=== PATIENT | male | born 1995 | race Caucasian/White ===

== ENCOUNTER 2017-05-19 09:47 | Emergency (ER) | payer MEDICAID, OTHER ==
[~2017-05-19] VITALS: Ht 180.3 cm; Wt 77.4 kg
[2017-05-19] MEDS ORDERED: LIDOCAINE 1% HCL (LOCAL ANESTH.) INJ 20ML MDV ONE (10:13)
[2017-05-19] MEDS ORDERED: cefTRIAXone SOD 1,000 MG VL ONE (10:13)
[2017-05-19] MEDS ORDERED: cefTRIAXone W LIDOCAINE 1 GM IM IM ONE (10:15)
[2017-05-19 10:16] VITALS: BP 133/77
== END 2017-05-19 11:47 | disposition home or self-care (01) ==
LOC: ER 09:47
DX: K02.9 Dental caries, unspecified (principal)
CPT/HCPCS: 96372; 99283; J0696; J2001

== ENCOUNTER 2020-05-30 05:03 | Emergency (ER) | payer MEDICAID ==
[~2020-05-30] VITALS: Ht 185.4 cm; Wt 83.9 kg
[2020-05-30 05:12] VITALS: BP 128/79
[2020-05-30 05:57] LABS: Urine WBC None Seen /hpf (0 - 3)
[2020-05-30 06:27] LABS: Urine Bacteria NONE SEEN /hpf (None Seen); Urine Blood Negative /uL (Negative); Urine Mucus FEW (None Seen); Urine Specific Gravity 1.027 (1.001-1.035)
[2020-05-30] MEDS ORDERED: KETOROLAC TROMETH 60MG/2ML VIAL IM ONE (06:45)
[2020-05-30] MEDS ORDERED: HYDROcodone-ACET 5/325MG TAB PO ONE ×2 (06:45→07:00)
== END 2020-05-30 07:41 | disposition home or self-care (01) ==
LOC: ER 05:03
DX: S39.012A Strain of muscle, fascia and tendon of lower back, initial encounter (principal); X50.9XXA Other and unspecified overexertion or strenuous movements or postures, initial encounter; Y93.89 Activity, other specified; Y92.89 Other specified places as the place of occurrence of the external cause; Y99.8 Other external cause status
CPT/HCPCS: 72100; 81001; 96372; 99284; J1885